=== PATIENT | male | born 1980 | race Caucasian/White ===

== ENCOUNTER 2018-07-29 08:58 | Emergency (ER) | payer BC ==
[2018-07-29 09:05] VITALS: BP 134/88
[2018-07-29] MEDS ORDERED: Lidocaine 1%* 5 ML VIAL INJ ONE (10:06)
--- NOTE | 2018-07-29 10:15 | UC ---
Skin Complaint HPI - HPI Summary HPI Summary: SPLINTER IN LEFT INDEX FINGER AT LEVEL OF DIP SUSTAINED 2 DAYS AGO WHILE WOOD WORKING AT HOME. HAS BEEN SOAKING IT BUT IT IS NOW SWOLLEN, RED AND MORE PAINFUL. UTD TETANUS LAST 3 YEARS. - History of Current Complaint Chief Complaint: UCUpperExtremity Time Seen by Provider: 07/29/18 09:59 Stated Complaint: FINGER COMPLAINT Hx Obtained From: Patient Onset/Duration: Sudden Onset, Lasting Days, Still Present Timing: Constant Onset Severity: Mild Current Severity: Moderate Pain Intensity: 7 Pain Scale Used: 0-10 Numeric Location: Hand (Left) - LEFT INDEX FINGER Character: Swelling, Pain, Redness Aggravating Factor(s): Touch, Other - MOVEMENT Alleviating Factor(s): Nothing Associated Signs & Symptoms: Positive: Tenderness. Negative: Fever - Allergy/Home Medications Allergies/Adverse Reactions: Allergies Allergy/AdvReac Type Severity Reaction Status Date / Time meperidine [From Demerol] Allergy Intermediate Agitation Verified 07/29/18 09:05 PMH/Surg Hx/FS Hx/Imm Hx GI/ History: Ulcer - Surgical History Surgical History: Yes Surgery Procedure, Year, and Place: hy. hernia surgery - Family History Known Family History: Positive: Non-Contributory - Social History Alcohol Use: Rare Substance Use Type: None Smoking Status (MU): Former Smoker When Did the Patient Quit Smoking/Using Tobacco: 5 yrs ago Household Exposure Type: Cigarettes Review of Systems All Other Systems Reviewed And Are Negative: Yes Constitutional: Positive: Negative Skin: Positive: Other - RED, SWOLLEN LEFT 2ND FINGER Respiratory: Positive: Negative Cardiovascular: Positive: Negative Gastrointestinal: Positive: Negative Musculoskeletal: Positive: Arthralgia, Decreased ROM, Edema Physical Exam Triage Information Reviewed: Yes Appearance: Well-Appearing, No Pain Distress, Well-Nourished Vital Signs: Initial Vital Signs Temp 99.2 F 07/29/18 09:02 Pulse 87 07/29/18 09:02 Resp 17 07/29/18 09:02 BP 134/88 07/29/18 09:02 Pulse Ox 100 07/29/18 09:02 Vital Signs Reviewed: Yes Eyes: Positive: Conjunctiva Clear ENT: Positive: Hearing grossly normal Neck: Positive: Supple Respiratory: Positive: No respiratory distress, No accessory muscle use Cardiovascular: Positive: Pulses Normal Abdomen Description: Positive: Soft Musculoskeletal: Positive: ROM Limited @ - LEFT INDEX FINGER, Edema @ - LEFT INDEX FINGER DIP JOINT Neurological: Positive: Alert Psychological: Positive: Age Appropriate Behavior Skin: Positive: Other - ERYTHEMA LEFT INDEX FINGER Diagnostics - Radiology LEFT 2ND FINGER XRAYS Radiology Interpretation Completed By: Radiologist Summary of Radiographic Findings: SOFT TISSUE SWELLING. NO ACUTE OSSEOUS INJURY. Course/Dx - Course Course Of Treatment: TIME OUT COMPLETED. LOCAL ANESTHESIA WITH 1% LIDOCAINE. AREA PREPPED IN STERILE FASHION. 4MM WOODEN SPLINTER REMOVED FROM LEFT INDEX FINGER USING FORCEPS. PT TOLERATED PROCEDURE WELL. CEPHALEXIN TO COVER FOR INFECTION. OTC MEDS FOR PAIN. FOLLOW-UP WITH HAND SURGEON. - Diagnoses Provider Diagnosis: Foreign body of left index finger with infection Discharge - Sign-Out/Discharge Documenting (check all that apply): Patient Departure All imaging exams completed and their final reports reviewed: Yes - Discharge Plan Condition: Stable Disposition: HOME Prescriptions: Cephalexin CAP* [Keflex 500 CAP*] 1,000 mg PO BID #28 cap Patient Education Materials: Soft Tissue Foreign Body (ED) Referrals: Angel Liang MD [Primary Care Provider] - If Needed Candelario Lubin MD [Medical Doctor] - 3 Days Additional Instructions: A 4 MM WOODEN FOREIGN BODY WAS REMOVED FROM YOUR LEFT INDEX FINGER TODAY. IT IS POSSIBLE THERE IS STILL SOME RETAINED FOREIGN BODY. CONTINUE TO SOAK YOUR FINGER IN HOT WATER SEVERAL TIMES DAILY. TAKE THE ANTIBIOTIC TWICE DAILY PRESCRIBED TO COVER FOR INFECTION. IF YOUR SYMPTOMS DO NOT RESOLVE YOU WILL NEED FOLLOW-UP WITH A HAND SURGEON. CALL ORTHOPEDICS TODAY TO SCHEDULE AN APPOINTMENT FOR EARLY NEXT WEEK. - Billing Disposition and Condition Condition: STABLE Disposition: Home
== END 2018-07-29 10:38 | disposition home or self-care (01) ==
LOC: UCEAST 08:58
DX: S60.451A Superficial foreign body of left index finger, initial encounter (principal); L08.9 Local infection of the skin and subcutaneous tissue, unspecified; W45.8XXA Other foreign body or object entering through skin, initial encounter; Y93.89 Activity, other specified; Y92.009 Unspecified place in unspecified non-institutional (private) residence as the place of occurrence of the external cause; Z88.5 Allergy status to narcotic agent; Z87.891 Personal history of nicotine dependence
CPT/HCPCS: 10120; 73140; 99212; G0463

== ENCOUNTER 2018-08-30 15:41 | Emergency (ER) | payer BC ==
[2018-08-30 16:09] VITALS: BP 137/86
--- NOTE | 2018-08-30 17:54 | UC ---
Respiratory Complaint HPI - HPI Summary HPI Summary: 37-year-old male comes in with a chief complaint of cough chest congestion and shortness of breath dizziness sinus pressure. The about a Month ago patient started with upper respiratory tract infection symptoms. During this time patient was also on amoxicillin and penicillin for foreign body soft tissue infection and a dental infection. Those are both healed up now. Patient has chest congestion that he coughs up. He is to be yellow and green and now it's white. He had a DuoNeb once which he didn't think helped. His primary care doctor gave him 4 days prednisone which did help. No history of asthma. No chest pain no pedal edema. He's having sinus pressure. When he coughs he gets dizzy he gets some spinning going on. - History of Current Complaint Chief Complaint: UCRespiratory Stated Complaint: RESP COMPLAINT Time Seen by Provider: 08/30/18 17:16 Pain Intensity: 71 - Allergies/Home Medications Allergies/Adverse Reactions: Allergies Allergy/AdvReac Type Severity Reaction Status Date / Time meperidine [From Demerol] Allergy Intermediate Agitation Verified 08/30/18 16:09 Home Medications: Home Medications Ibuprofen TAB* [Advil TAB*] 200 mg PO Q6HR PRN 08/30/18 [History Confirmed 08/30] PMH/Surg Hx/FS Hx/Imm Hx Previously Healthy: Yes GI/ History: Gastroesophageal Reflux - Surgical History Surgical History: Yes Surgery Procedure, Year, and Place: hy. hernia surgery - Family History Known Family History: Positive: Non-Contributory - Social History Alcohol Use: Rare Substance Use Type: None Smoking Status (MU): Former Smoker When Did the Patient Quit Smoking/Using Tobacco: 5 yrs ago Household Exposure Type: Cigarettes Review of Systems All Other Systems Reviewed And Are Negative: Yes Constitutional: Positive: Fatigue, Other - DIZZINESS Skin: Positive: Negative Eyes: Positive: Negative ENT: Positive: Nasal Discharge, Sinus Congestion, Sinus Pain/Tenderness Respiratory: Positive: Shortness Of Breath, Cough, Other - SEE HPI Cardiovascular: Positive: Negative Gastrointestinal: Positive: Negative Motor: Positive: Negative Neurovascular: Positive: Negative Musculoskeletal: Positive: Negative Neurological: Positive: Headache - FRONTAL AND INTERMITTENT MIGRAINES Is Patient Immunocompromised?: No Physical Exam Triage Information Reviewed: Yes Appearance: No Pain Distress, Well-Nourished, Ill-Appearing - MILD Vital Signs: Initial Vital Signs Temp 98.7 F 08/30/18 16:03 Pulse 89 08/30/18 16:03 Resp 18 08/30/18 16:03 BP 137/86 08/30/18 16:03 Pulse Ox 99 08/30/18 16:03 Vital Signs Reviewed: Yes Eye Exam: Normal Eyes: Positive: Conjunctiva Clear ENT: Positive: Pharynx normal, Nasal congestion, Nasal drainage, TMs normal Neck: Positive: Supple Respiratory: Positive: Rhonchi, Other: - SEVERAL COUGHING EPISODES IN CLINIC Cardiovascular: Positive: RRR Musculoskeletal Exam: Normal Musculoskeletal: Positive: Strength Intact, ROM Intact, No Edema - NO CALF TENDERNESS Neurological Exam: Normal Neurological: Positive: Alert Psychological Exam: Normal Psychological: Positive: Normal Response To Family, Age Appropriate Behavior Skin Exam: Normal Respiratory Course/Dx - Course Course Of Treatment: Patient Name: MARCO A ALMANZA Medical Record#: [id number] Ordering Physician: Desean Price MD Acct.#: [id number] : 1980 Age: 37 Sex: M Location: [facility] Exam Date: 08/30/181716 ADM Status: REG ER Order Information: CHEST PA LAT 2 VWS Accession Number: [id number] CPT: 40669 Indication: Cough. 2 views of the chest including dual energy PA views demonstrates no mediastinal shift. Heart is of normal size and configuration. Lung puga are clear. IMPRESSION: No active cardiopulmonary disease is noted. <Electronically signed by Janie Mason MD in OV> 08/30/18 3670 I discussed the x-ray with the patient and his . No pneumonia seen on x- ray. Right now the plan is doxycycline which will cover for sinusitis and for bronchitis. Albuterol to be used as needed. Going to use a Medrol dosepak as the patient recently had 4 days of prednisone. He declined meclizine for his dizziness which is vertiginous in nature. Follow-up primary care doctor let him know that if he gets worse with shortness of breath weakness fevers before meals reevaluated in the emergency department. - Differential Dx/Diagnosis Provider Diagnosis: Sinusitis, Acute bronchitis, Dizziness, Vertigo Discharge - Sign-Out/Discharge Documenting (check all that apply): Patient Departure All imaging exams completed and their final reports reviewed: Yes - Discharge Plan Condition: Stable Disposition: HOME Prescriptions: Albuterol HFA INHALER* [Ventolin HFA Inhaler*] 2 puff INH Q4H PRN #1 mdi PRN Reason: Wheezing DOXYcycline CAP(*) [DOXYcycline 100MG CAP(*)] 100 mg PO BID #20 cap methylPREDNISolone [Medrol Dosepak 4 MG*] 0 mg PO .SEE ABHISHEK INSTRUCTION #1 abhishek Patient Education Materials: Sinusitis (ED), Vertigo (ED), Acute Bronchitis (ED ), Dizziness (ED) Referrals: Angel Liang MD [Primary Care Provider] - Additional Instructions: FOLLOW UP WITH YOUR DOCTOR IF NOT COMPLETELY IMPROVED. GO TO THE EMERGENCY DEPARTMENT IF YOUR CONDITION WORSENS; FEVER, SHORTNESS OF BREATH, WEAKNESS OR ANY QUESTIONS OR CONCERNS. - Billing Disposition and Condition Condition: STABLE Disposition: Home
== END 2018-08-30 18:05 | disposition home or self-care (01) ==
LOC: UCEAST 15:41
DX: J20.9 Acute bronchitis, unspecified (principal); J32.9 Chronic sinusitis, unspecified; G43.909 Migraine, unspecified, not intractable, without status migrainosus; R42 Dizziness and giddiness; Z87.891 Personal history of nicotine dependence; Z88.5 Allergy status to narcotic agent
CPT/HCPCS: 71046; 99212; G0463

== ENCOUNTER 2019-02-15 15:10 | Emergency (ER) | payer SELFPAY ==
--- OUTSIDE RECORDS SUMMARY | 2019-02-15 15:27 | XMS REPORT | Continuity of Care Document ---
:1980 External Reference #:[id number] Author Name Deep Lopez M.D. (transmitted by agent of provider Kalpana Lopes) Address [address] [place] [id number] Care Team Providers Name Role Phone Angel Liang M.D. - Family Medicine Care Team Information Donations Attendant [phone] Problems Description No Information Available Social History Type Date Description Comments Sex Unknown ETOH Use Occasionally consumes beer ETOH Use consumes 3-4 beers per week Tobacco Use Start: Unknown End: Patient is a former smoker Unknown Smoking Status Reviewed: 01/05/19 Patient is a former smoker Exercise Type/Frequency Exercises regularly Allergies, Adverse Reactions, Alerts Active Allergies Reaction Severity Comments Date Demerol Dizziness, Nausea increased agitation 12/15/2018 Medications Active Medications SIG Qnty Indications Ordering Date Provider Darnell 160 mg (two 80 mg 8units M54.5 Deep Lopez, 01/05/2019 80mg/ml Solution injections) at M.D. Auto-Inject week 0, followed by 80 mg at weeks 2, 4, 6, 8, 10, and 12, then 80 mg every 4 weeks. Methotrexate take 4 30tabs Deep Lopez, 12/15/2018 2.5mg capsules/tablets M.D. Tablets by mouth once weekly on Folic Acid take one 90tabs Deep Lopez, 12/15/2018 1mg Tablets capsule/tablet M.D. daily by mouth Nexium 1 by mouth every Unknown 40mg Capsules DR day Immunizations Description No Information Available Vital Signs Date Vital Result Comment 01/05/2019 4:23pm Height 64 inches 5'4" Weight 179.12 lb Heart Rate 88 /min BP Systolic Sitting 122 mmHg BP Diastolic Sitting 80 mmHg Pain Level 7 O2 % BldC Oximetry 98 % BMI (Body Mass Index) 30.7 kg/m2 12/15/2018 10:10am Height 64 inches 5'4" Weight 176.38 lb Heart Rate 76 /min BP Systolic Sitting 120 mmHg BP Diastolic Sitting 80 mmHg Pain Level 3 O2 % BldC Oximetry 97 % BMI (Body Mass Index) 30.3 kg/m2 Results Test Date Facility Test Result H/L Range Note Laboratory test [facility] Erythrocyte Sed 0 mm/Hr Normal 0-14 1 finding [address] [place] [address] [phone] Hepatitis Acute [facility] Hepatitis A AB Negative Negative 2 Panel [address] [place] [address] [phone] Hepatitis B Core AB Igm Nonreactive Nonreactive 3 Hepatitis B Surface Ag Nonreactive Nonreactive 4 Hepatitis C Antibody 01/04/2019 [facility] HCV Index 0.02 s/c [address] [place] [address] [phone] Hepatitis C Antibody Negative Negative Laboratory test finding 01/04/2019 [facility] Hla B27 <pending> [address] [place] [address] [phone] Ferritin 38.6 ng/mL Normal 24-336 5 1 Please check labs this week and xrays 2 Please check labs this week and xrays 3 Please check labs this week and xrays 4 Please check labs this week and xrays 5 Please check labs this week and xrays Procedures Description No Information Available Medical Devices Description No Information Available Encounters Type Date Location Provider Dx Diagnosis Office Visit 12/15/2018 Rheumatology Deep Lopez, L40.50 Arthropathic 10:[facility] psoriasis, unspecified 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 01/05/2019 Z79.899 Other [employer] (current) drug therapy Deep Lopez M.D. 01/05/2019 N18.9 Chronic kidney disease, unspecified Deep Lopez M.D. 01/05/2019 M54.5 Low back pain Deep Lopez M.D. 01/05/2019 K21.9 Gastro-esophageal reflux disease without Deep Lopez M.D. esophagitis 12/15/2018 L40.50 Arthropathic psoriasis, unspecified Deep Lopez M.D. 12/15/2018 Z79.899 Other correction (current) drug therapy Deep Lopez M.D. 12/15/2018 N18.9 Chronic kidney disease, unspecified Deep Lopez M.D. 12/15/2018 M25.569 Pain in unspecified knee Deep Lopez M.D. 12/15/2018 M54.5 Low back pain Deep Lopez M.D. 12/15/2018 R06.83 Snoring Deep Lopez M.D. 12/15/2018 M54.2 Cervicalgia Deep Lopez M.D. Plan of Treatment Future Appointment(s):03/08/2019 10:40 am - Deep Lopez M.D. at [facility]01/05/2019 - Deep Lopez M.D.L40.50 Arthropathic psoriasis, unspecifiedNew Labs:C Reactive Protein, Ordered: 01/05/19Z79.899 Other laborer [employer] (current) drug therapyNew Labs:CBC Auto Diff, Ordered: 01/05/19N18.9 Chronic kidney disease, unspecifiedNew Labs:Comp Metabolic Panel, Ordered: 01/05Quantiferon-TB Gold Plus, Ordered: 01/05/19M54.5 Low back painNew Medication: Taltz 80 mg/ml - 160 mg (two 80 mg injections) at week 0, followed by 80 mg at weeks 2, 4, 6, 8, 10,and 12, then 80 mg every 4 weeks.New Therapy:Physical DkyedysP89.9 Gastro-esophageal reflux disease without esophagitisReferral: Harinder Bravo MD, GastroenterologyFollow up:Follow up in 6-8 weeks or sooner if needed Functional Status Description No Information Available Mental Status Description No Information Available Referrals Refer to Reason for Referral Status Appt Date Harinder Bravo MD Please evaluate and treat refractory reflux Created [address] [place] [address] [phone] [facility] [place] [place] [facility] Please evaluate for sleep apnea Sent [address] [address] [phone]
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
[2019-02-15] MEDS: Cyclobenzaprine TAB* 10 MG PO ONE (18:42)
[2019-02-15 18:56] VITALS: BP 132/99
== END 2019-02-15 18:47 | disposition home or self-care (01) ==
LOC: ED 15:10
DX: S06.0X9A Concussion with loss of consciousness of unspecified duration, initial encounter (principal); S13.4XXA Sprain of ligaments of cervical spine, initial encounter; S16.1XXA Strain of muscle, fascia and tendon at neck level, initial encounter; V44.5XXA Car driver injured in collision with heavy transport vehicle or bus in traffic accident, initial encounter; Y92.410 Unspecified street and highway as the place of occurrence of the external cause; M06.9 Rheumatoid arthritis, unspecified; Z87.891 Personal history of nicotine dependence; Z79.899 Other long term (current) drug therapy; Z88.5 Allergy status to narcotic agent
CPT/HCPCS: 70450; 72125; 99282; A9270-GY

== ENCOUNTER 2021-01-22 20:38 | Observation (INO) ==
[2021-01-22] MEDS ORDERED: Lactated Ringers 1000 ml BAG 1,000 ML IV ONE (21:02)
[2021-01-22] MEDS ORDERED: Ondansetron 4 mg VIAL 2 MG/ML 2 ml VIAL IV ONE (21:02)
[2021-01-22] MEDS ORDERED: Iodixanol (CONTRAST) 320 MG/ML 100 ML SDV IV ONE (21:39)
[2021-01-22 21:47] LABS: ABS Lymphocytes 1.8 10^3/ul (1.0-4.8); ABS Monocytes 0.4 10^3/ul (0-0.8); ABS Neutrophils 6.5 10^3/ul (1.5-7.7); Eosinophil % 0.4 %; Hematocrit 44 % (42-52); Hemoglobin 15.3 g/dL (14.0-18.0); Lymphocyte % 20.6 %; Mean Corpuscular HGB Conc 35 g/dL (31-36); Mean Corpuscular Hemoglobin 30 pg (27-31); Mean Corpuscular Volume 85 fL (80-94); Mean Platelet Volume 8.3 fL (7.4-10.4); Nucleated Red Blood Cells % 0.1; Platelet Count 157 10^3/uL (150-450); Red Blood Count 5.18 10^6 /uL (4.18-5.48); Red Cell Distribution Width 13 % (10-15); White Blood Count 8.8 10^3/uL (3.5-10.8)
[2021-01-22 22:10] LABS: Albumin 4.3 g/dL (3.2-5.2); Albumin/Globulin Ratio 1.7 (1-3); C Reactive Protein 2.38 mg/L (<8.01); Calcium 8.8 mg/dL (8.6-10.3); Globulin 2.6 g/dL (2-4); Magnesium 1.9 mg/dL (1.9-2.7); Potassium 3.4 mmol/L (3.5-5.0); Total Bilirubin 0.5 mg/dL (0.2-1.0); Total Protein 6.9 g/dL (6.4-8.9)
[2021-01-22] MEDS ORDERED: Diazepam INJ CARPUJECT 5 MG/ML IV ONE (22:42)
[2021-01-23] MEDS ORDERED: Potassium Chlor 20 meq TAB.ER PO ONE (00:46)
[2021-01-23 01:32] LABS: Rapid COVID-19 Molecular Undetected (Undetected)
[2021-01-23] MEDS ORDERED: Ondansetron 4 mg VIAL 2 MG/ML 2 ml VIAL IV PRN (03:54)
[2021-01-23 05:11] LABS: HDL Cholesterol 36.2 mg/dL
[2021-01-23 07:05] LABS: Calcium 9.3 mg/dL (8.6-10.3); Potassium 4.3 mmol/L (3.5-5.0)
[2021-01-23] MEDS ORDERED: Gadoteridol (CONTRAST) 279.3 MG/ML 10 ML IV ONE (13:17)
[2021-01-23] MEDS: DULoxetine DR 30 mg CAP PO SCH ×2 (16:41→16:42)
[2021-01-24 07:04] LABS: ABS Lymphocytes 1.7 10^3/ul (1.0-4.8); ABS Monocytes 0.4 10^3/ul (0-0.8); ABS Neutrophils 5.4 10^3/ul (1.5-7.7); Eosinophil % 0.1 %; Hematocrit 44 % (42-52); Hemoglobin 15.7 g/dL (14.0-18.0); Lymphocyte % 22.7 %; Mean Corpuscular HGB Conc 36 g/dL (31-36); Mean Corpuscular Hemoglobin 31 pg (27-31); Mean Corpuscular Volume 85 fL (80-94); Mean Platelet Volume 8.3 fL (7.4-10.4); Nucleated Red Blood Cells % 0.1; Platelet Count 183 10^3/uL (150-450); Red Blood Count 5.16 10^6 /uL (4.18-5.48); Red Cell Distribution Width 13 % (10-15); White Blood Count 7.6 10^3/uL (3.5-10.8)
[2021-01-24 07:31] LABS: Calcium 9.5 mg/dL (8.6-10.3)
[2021-01-24] MEDS: DULoxetine DR 30 mg CAP PO SCH (09:28)
[2021-01-24 11:39] VITALS: BP 140/66
== END 2021-01-24 13:28 | disposition home or self-care (01) ==
LOC: ED 20:38 → SUATTDRO 01-23 03:54 → EDHOLD 01-23 03:54 → INTOOBSV 01-23 03:54 → MEDTELE 01-23 13:57
PROVIDERS: ADMIT Internal Medicine; ATTEND Hospitalist